=== PATIENT | female | born 1975 | race Caucasian/White ===

== ENCOUNTER 2021-01-19 12:50 | Emergency (ER) | payer MEDICAID ==
[~2021-01-19] VITALS: Ht 167.6 cm; Wt 81.7 kg
[2021-01-19 13:37] LABS: URINE BILIRUBIN NEGATIVE (Negative); URINE BLOOD 3+ (Negative); URINE CLARITY CLEAR; URINE COLOR YELLOW; URINE GLUCOSE-RANDOM NEGATIVE (Negative); URINE KETONES NEGATIVE (Negative); URINE NITRITE-REFLEX NEGATIVE (Negative); URINE PROTEIN 2+ (Negative); URINE UROBILINOGEN 0.2 E.U./dl (0.2-1.0)
[2021-01-19 13:47] LABS: AMP/METHAMP Negative (Negative); BARBITURATES Negative (Negative); BENZODIAZEPINES Negative (Negative); COCAINE Negative (Negative); METHADONE Negative (Negative); OPIATES Negative (Negative); PCP Negative (Negative); THC Negative (Negative)
[2021-01-19 13:52] LABS: URINE LEUKOCYTES-REFLEX 2+ (Negative)
[2021-01-19 13:56] LABS: SQUAMOUS 4-10 Moderate /LPF (0-3); URINE RBC >20 Many /HPF (0-2); URINE WBC-REFLEX 6-15 Few /HPF (0-5)
[2021-01-19 13:57] LABS: BACTERIA-REFLEX 1-9 Few /HPF (None Seen); CASTS None Seen /LPF (None Seen); CRYSTALS None Seen /LPF (None Seen); MUCUS >6 Heavy strn/LPF (None Seen)
[2021-01-19 14:34] LABS: CALCIUM 9.1 mg/dL (8.5-10.1); CREATININE 2.1 mg/dL (0.6-1.3); POTASSIUM 4.4 mmol/L (3.5-5.1)
[2021-01-19 14:39] LABS: ALBUMIN 2.1 g/dL (3.4-5.0); TOTAL BILIRUBIN 0.3 mg/dL (<0.1-1.0); TOTAL PROTEIN 8.1 g/dL (6.4-8.2)
[2021-01-19] MEDS ORDERED: FLEXERIL PO (15:11)
[2021-01-19] MEDS ORDERED: CEPHALEXIN500 MG PO (15:11)
[2021-01-19 15:33] VITALS: BP 138/94
--- NOTE | 2021-01-21 08:03 | EKG ---
[place] [address] ELECTROCARDIOGRAM REPORT Name: MARCIAL YATES Room: [facility]#: [id number] Admission: 01/19/21 Attend Phys: Discharge: 01/19/21 Date of : 75 Date of Service: 01/19/21 1325 Report #: [id number] THIS REPORT FOR: //name// [facility] ED Test Date: 2021-01-19 Test Time: 13:25:59 Pat Name: MARCIAL YATES Department: Room: Gender: Racker Octave Board: [facility] : 1975 Requested By: Lexis Pham Order Number: [id number] MD: Bulmaro Doll Measurements Intervals [place] Rate: 119 P: 55 OK: 141 QRS: 17 QRSD: 84 T: 32 QT: 296 QTc: 417 Interpretive Statements Sinus tachycardia No previous ECG available for comparison Electronically Signed On 01-21-2021 8:03:37 CDT by Bulmaro Doll [email or web address] <ELECTRONICALLY SIGNED> By: Bulmaro Doll MD, [facility] 01/21/21 08 1325 Bulmaro Doll MD, FACC /EPI
== END 2021-01-19 15:34 | disposition home or self-care (01) ==
LOC: M.ERS 12:50
PROVIDERS: Nurse Practitioner Family
DX: N39.0 Urinary tract infection, site not specified (principal); R52 Pain, unspecified; I10 Essential (primary) hypertension; F17.210 Nicotine dependence, cigarettes, uncomplicated; Z90.49 Acquired absence of other specified parts of digestive tract